=== PATIENT | female | born 1995 | race African-American/Black ===

== ENCOUNTER 2021-03-08 13:34 | Emergency (ER) | payer SELFPAY ==
[~2021-03-08] VITALS: Ht 172.7 cm; Wt 70.0 kg
[2021-03-08] MEDS ORDERED: MIDAZOLAM HCL 2 MG/2 ML VIAL IV ONE (14:30)
[2021-03-08 15:24] LABS: EOSINOPHILS % 2.2 % (0.0-5.0); HEMATOCRIT. 34.5 % (36.0-48.0); HEMOGLOBIN. 11.8 g/dL (12.0-16.0); LYMPHOCYTES % 54.5 % (20.0-50.0); MEAN CORPUSCULAR HEMOGLOBIN 29.3 pg (28.0-32.0); MEAN CORPUSCULAR VOLUME 85.7 fL (81.0-99.0); MEAN PLATELET VOLUME 9.2 fl (7.4-10.4); MONOCYTES % 11.3 % (2.0-8.0); PLATELET 265 x1000/uL (130-400); RED BLOOD CELL COUNT 4.03 mill/uL (4.2-5.4); RED CELL DISTRIBUTION WIDTH 14.2 % (11.6-14.6)
[2021-03-08 15:31] LABS: CHLORIDE 112 mEq/L (98-107)
[2021-03-08 15:33] LABS: HCG SCREEN NEGATIVE
[2021-03-08 15:36] LABS: ETHANOL BLOOD < 10 mg/dL
[2021-03-08 21:10] VITALS: BP 135/64
== END 2021-03-08 21:29 | disposition home or self-care (01) ==
LOC: ER 13:34 → EDBD 13:34 → ER 21:29
DX: T50.905A Adverse effect of unspecified drugs, medicaments and biological substances, initial encounter (principal); Y92.9 Unspecified place or not applicable
CPT/HCPCS: 36415; 80053; 80307; 80320; 80329; 84703; 85025; 96374; 99285; J2250; G0480